=== PATIENT | male | born 1960 | race Caucasian/White ===

== ENCOUNTER 2020-11-23 20:37 | Emergency (ER) | payer BC, SELFPAY ==
[2020-11-23 20:42] VITALS: BP 147/100; PULSE 89; RESP 15; TEMP 36.6; O2SAT 98; BMI 31.9
--- NOTE | 2020-11-23 20:51 | XR_ITS ---
PROCEDURE INFORMATION: Exam: XR Right Hip Exam date and time: 11/23/2020 8:51 PM Age: 60 years old Clinical indication: Patient HX: Right hip pain for 1 week with unknown injury, pain increased today, PT says feels like having spasms TECHNIQUE: Imaging protocol: XR Right hip. Views: 2 or 3 views hip with pelvis when performed. COMPARISON: No relevant prior studies available. FINDINGS: Bones/joints: No fracture or dislocation identified. Femoral heads retain their normal contour. Soft tissues: Unremarkable. Vasculature: A few phleboliths are incidentally noted in the pelvis. IMPRESSION: No acute findings.
[2020-11-23 21:30] VITALS: BP 123/77; PULSE 75; O2SAT 96
--- NOTE | 2020-11-23 21:53 | HMH.EDBACK ---
ED Disposition Clinical Impression: Low back strain Qualifiers: Encounter type: initial encounter Qualified Code(s): S39.012A - Strain of muscle, fascia and tendon of lower back, initial encounter Disposition: Home, Self-Care Condition on Discharge: Good Instructions: DI for Low Back Pain Additional Instructions: Recommend Tylenol and ibuprofen or Aleve for pain intermittent icing rest and activity as tolerated. Prescriptions: Cyclobenzaprine HCl [Flexeril 10mg tablet] 10 mg PO TID PRN 4 Days #12 tab PRN Reason: Muscle Spasm Transmission Status: Pending to [id number] Referrals: Obdulio Wilder [Primary Care Provider] - Time of Disposition: 22:04 - Critical Care Critical Care Time: No Attestation: On 11/23/20, the high probability of a clinically significant, sudden or life threatening deterioration of the following system(s) required my full and direct attention, intervention and personal management. The time I documented below is in addition to time spent performing reported procedures but includes the following listed in this critical care notation. Medical Decision Making - Medical Records Medical records reviewed: Yes: I reviewed the patient's medical records. - Steve Inquiry Pt receiving controlled substance: No Vital Signs: 11/23/20 20:42 Temperature 98 F Temperature Source Oral Pulse Rate [Right Brachial] 89 Respiratory Rate 15 Blood Pressure [Right Arm] 147/100 H Blood Pressure Mean [Right Arm] 115 Blood Pressure Source [Right Arm] Automatic Cuff Blood Pressure Position [Right Arm] Sitting 02 Sat by Pulse Oximetry 98 Oxygen Delivery Method Room Air Orders (Tests/Meds): ED MEDICATIONS Discontinued Medications Generic Name Dose Route Start Last Admin Trade Name Freq PRN Reason Stop Dose Admin Diazepam 5 mg 11/23/20 20:51 11/23/20 21:02 Diazepam 5mg Tablet PO 11/23/20 20:52 5 mg ONCE ONE Administration Ketorolac Tromethamine 30 mg 11/23/20 20:51 11/23/20 21:01 Ketorolac 30mg/Ml Vial IM 11/23/20 20:52 30 mg ONCE ONE Administration ORDERS Category Date Time Status Hip XR right minimum 2 views [XR hip RT 2-3V w/pelvis] Exams 11/23/20 20:51 Taken Stat - Radiology Data #1 Image(s): Hip Image Reviewed: Yes I reviewed the patient's radiology image mild arthritis of the R hip joint with no misalignment and no evidence of fracture. Medical Decision Narrative: Days of lower back pain that appears muscular in nature with active spasming on exam and muscular tenderness. No red flag symptoms for compressive syndrome and vascular pulses are normal to the foot with no other concerning symptoms. He was given Toradol IM 30 mg and 5 mg p.o. Valium. On reevaluation the patient's symptoms had significantly improved he was given appropriate return precautions and conservative management discharged home in good condition Back Pain HPI - General Chief Complaint: Back Pain/Injury Stated Complaint: back pain Time Seen by Provider: 11/23/20 20:45 Mode of Arrival: Family Vehicle Source of Information: Patient Limitations: No Limitations Description of Symptoms (Recalled from ER Triage Doc. by RN): pt has had what he says is aggravating right hip pain for the last week, acutely exacerbated tonight when he attempted to get up out of his chair. the pain went right through me, made me see stars . vss. emv 15. pt denies previous injury to this area. - History of Present Illness HPI Narrative: Presents with sharp back pain that is intermittently severe started as he euegnia up out of a chair within the hour before arrival. Pain is right lower back and hip. He has been sore and hurting minimally for the past 2 days. He has been using heat and massage therapy over the past 2 days with no [id number] medications. Denies saddle anesthesia, leg weakness, and urinary incontinence/retention. Pt describes pain as 8/10 at this time and denies radiation
[2020-11-23 22:00] VITALS: BP 110/64; PULSE 77; O2SAT 97
[2020-11-23 22:16] VITALS: BP 123/84; PULSE 77; RESP 18; TEMP 36.6; O2SAT 95
== END 2020-11-23 22:19 | disposition home or self-care (01) ==
PROVIDERS: Emergency Provider Student in an Organized Health Care Education/Training Program; PCP Internal Medicine
DX: S39.012A Strain of muscle, fascia and tendon of lower back, initial encounter (principal)
CPT/HCPCS: 73502; 96372; 99282

== ENCOUNTER → 2020-12-04 10:27 | Outpatient (CLI) | payer BC, SELFPAY ==
[2020-12-04 10:58] LABS: Basophils % 0.5 % (0.1-2.0); Eosinophils # 0.2 K/mm3 (0.0-0.4); Eosinophils % 2.1 % (0.1-12.0); Hematocrit 46.1 % (42.0-52.0); Hemoglobin 15.4 g/dL (14.1-18.0); Lymphocytes # 2.6 K/mm3 (0.7-4.5); Lymphocytes % 32.5 % (10-50); Mean Corpuscular HGB Conc 33.4 g/dL (31.8-35.4); Mean Corpuscular Hemoglobin 29.1 pg (27.0-31.2); Mean Corpuscular Volume 87.1 fl (80-94); Mean Platelet Volume 8.1 fl (7.4-10.4); Monocytes # 0.5 K/mm3 (0.1-1.0); Monocytes % 5.5 % (1.7-9.3); Neutrophils # 4.8 K/mm3 (1.8-7.8); Neutrophils % 59.3 % (37.0-80.0); Platelet Count 208 K/mm3 (142-424); Red Blood Count 5.29 M/mm3 (4.60-6.20); Red Cell Distribution Width 14.1 % (11.5-17.5)
[2020-12-04 11:44] LABS: Alanine Aminotransferase 26 U/L (12-78); Albumin Level 4.3 g/dl (3.5-5.0); Albumin/Globulin Ratio 1.4 (1.1-1.8); Alkaline Phosphatase 88 U/L (38-126); Anion Gap 11.1 mEq/L (5-15); Aspartate Amino Transferase 36 U/L (17-59); Bilirubin,Total 0.8 mg/dl (0.2-1.3); Blood Urea Nitrogen 21 mg/dl (9-20); Calcium 9.3 mg/dl (8.4-10.2); Carbon Dioxide 25 mmol/L (22.0-30.0); Chloride 106 mmol/L (98-107); Chol/HDL Ratio 3.2 (1-3.5); Cholesterol 185 mg/dl (140-200); Estimated Glomerular Filt Rate 99 ml/min (>60); GFR (African American) 119 ML/MIN (>60); Globulin 3.1 g/dL (1.3-3.2); Glucose 115 mg/dl (74-100); HDL Cholesterol 57 mg/dl (40-60); Potassium 4.1 mmoL/L (3.5-5.1); Sodium 138 mmol/L (136-145); Total Protein,Serum 7.4 g/dl (6.3-8.2); Triglycerides 78 mg/dl (30-150); VLDL Cholesterol 16 mg/dL (0-40)
[2020-12-04 11:57] LABS: Direct LDL Cholesterol 97.33 mg/dL (100-129)
[2020-12-04 13:12] LABS: Hemoglobin A1C 7.4 % (4.0-6.0)
== END ==
PROVIDERS: Visit Provider Internal Medicine
DX: E11.42 Type 2 diabetes mellitus with diabetic polyneuropathy (principal); I10 Essential (primary) hypertension; E78.5 Hyperlipidemia, unspecified; M15.0 Primary generalized (osteo)arthritis
CPT/HCPCS: 36415; 80053; 80061; 83036; 85025

== ENCOUNTER → 2021-06-10 15:44 | Outpatient (CLI) | payer BC, SELFPAY ==
[2021-06-10 16:30] LABS: Basophils % 0.4 % (0.1-2.0); Eosinophils # 0.2 K/mm3 (0.0-0.4); Eosinophils % 2.9 % (0.1-12.0); Hematocrit 45.3 % (42.0-52.0); Hemoglobin 15.2 g/dL (14.1-18.0); Lymphocytes # 2.6 K/mm3 (0.7-4.5); Lymphocytes % 45.1 % (10-50); Mean Corpuscular HGB Conc 33.5 g/dL (31.8-35.4); Mean Corpuscular Hemoglobin 28.8 pg (27.0-31.2); Mean Corpuscular Volume 85.9 fl (80-94); Mean Platelet Volume 9.5 fl (7.4-10.4); Monocytes # 0.4 K/mm3 (0.1-1.0); Monocytes % 7.5 % (1.7-9.3); Neutrophils # 2.5 K/mm3 (1.8-7.8); Neutrophils % 44.1 % (37.0-80.0); Platelet Count 250 K/mm3 (142-424); Red Blood Count 5.27 M/mm3 (4.60-6.20); White Blood Count 5.7 K/mm3 (4.8-10.8)
[2021-06-10 17:13] LABS: Microalbumin < 6.000 mg/L (0-16.7)
[2021-06-10 17:18] LABS: Alanine Aminotransferase 34 U/L (12-78); Albumin Level 4.1 g/dl (3.5-5.0); Albumin/Globulin Ratio 1.4 (1.1-1.8); Alkaline Phosphatase 66 U/L (38-126); Amylase 57 U/L (30-110); Anion Gap 12.5 mEq/L (5-15); Aspartate Amino Transferase 44 U/L (17-59); Bilirubin,Total 0.7 mg/dl (0.2-1.3); Blood Urea Nitrogen 22 mg/dl (9-20); Calcium 9.4 mg/dl (8.4-10.2); Carbon Dioxide 24 mmol/L (22.0-30.0); Chloride 105 mmol/L (98-107); Cholesterol 176 mg/dl (140-200); Estimated Glomerular Filt Rate 99 ml/min (>60); GFR (African American) 119 ML/MIN (>60); Globulin 2.9 g/dL (1.3-3.2); Glucose 102 mg/dl (74-100); HDL Cholesterol 58 mg/dl (40-60); Potassium 4.5 mmoL/L (3.5-5.1); Sodium 137 mmol/L (136-145); Triglycerides 114 mg/dl (30-150); VLDL Cholesterol 23 mg/dL (0-40)
[2021-06-10 17:29] LABS: Direct LDL Cholesterol 92.06 mg/dL (100-129)
[2021-06-10 17:48] LABS: Prostate Specific Ag Screen 1.8 ng/ml (0.0-4.0)
[2021-06-10 18:32] LABS: Hemoglobin A1C 7.4 % (4.0-6.0)
== END ==
PROVIDERS: Visit Provider Internal Medicine
DX: R10.13 Epigastric pain (principal); E11.42 Type 2 diabetes mellitus with diabetic polyneuropathy; I10 Essential (primary) hypertension; E78.5 Hyperlipidemia, unspecified; M15.0 Primary generalized (osteo)arthritis; N40.1 Benign prostatic hyperplasia with lower urinary tract symptoms; Z12.5 Encounter for screening for malignant neoplasm of prostate
CPT/HCPCS: 80053; 80061; 82043; 82150; 83036; 85025; G0103

== ENCOUNTER → 2021-11-09 09:50 | Outpatient (CLI) | payer BC, SELFPAY | PROVIDERS: Visit Provider Surgery | DX: Z01.812 Encounter for preprocedural laboratory examination (principal); Z11.52 Encounter for screening for COVID-19; Z13.810 Encounter for screening for upper gastrointestinal disorder | CPT/HCPCS: C9803; U0003; U0005 ==

== ENCOUNTER 2021-11-12 11:19 | Day surgery (SDC) | payer BC, SELFPAY ==
[2021-11-07 14:49] VITALS: BMI 33.2
[2021-11-12 11:41] VITALS: BP 135/93; PULSE 52; RESP 18; TEMP 36.4; O2SAT 97
[2021-11-12 11:52] LABS: POC Glucose,Bedside 127 (70-110)
--- NOTE | 2021-11-12 12:41 | P.PN_ITS ---
[facility] Anesthesia Checklist - Patient Identification Patient Identification: Arm Band - Structural Data Admitted From: Home Planned Operative Procedure/s: EGD Consent for Planned Operative Procedure(s) Verified: Yes Verified Documents: Surgical Consent, History and Physical - NPO Status Verified Time NPO: 00:00 - Additional verifications Anesthesia Reactions: No - Airway Assessment C-Spine Mobility Assessed: Yes (mp2) TMJ Mobility Assessed: Yes Dentition: Edentulous - Neurological Assessment Level of Consciousness: Awake, Alert - Anesthesia Plan Anesthesia Risk discussed: Yes Anesthesia Plan: Verified ASA Class: II Anesthesia Type: MAC [facility] History I have reviewed the patient's past medical history: Yes Medical History: Reports:: Diabetes Mellitus Type 2, Hyperlipidemia, Hypertension Denies:: Cancer, MRSA, Seizures *Have you ever received a pneumonia vaccine?: Yes *Have you received a flu vaccine this season?: Yes Anesthesia experience/problems:: nac Other Surgeries: Yes: Cholecystectomy, Other Amputation: Yes - *Social History Last grade of school completed: High school graduate Smoking Status: Never smoker Alcohol Intake: never Substance Use Type: denies use *Occupational Status:: retired Housing: house *Travel in the last 8 weeks: None Family Hx:: No significant family history
--- NOTE | 2021-11-12 13:18 | HMH.SCOPE ---
- Procedure: Date: 11/12/21 Patient Date of :: 1960 Procedure Performed:: Esophagogastroscopy Indications:: Dyspepsia Epigastric pain Abdominal bloat Performing Provider:: Malachi Rivera MD Referring Provider:: . Sedation:: Monitored anesthesia care Procedure:: After informed consent was obtained the patient was taken to the endoscopy suite. Sedation ensued after the patient was transferred to the left lateral decubitus position. Pulse, blood pressure, and oxygen saturation were monitored throughout the procedure. The endoscope was advanced into the gastric lumen. Retroflexion within the gastric lumen was accomplished. The gastroscope was carefully removed and the patient was transferred to recovery in stable condition. Please see findings and specimens below for detail. Findings:: Complex hiatal hernia with likely sliding and paraesophageal component (versus large sliding defect)... Mid and distal portion of gastric body protruding through hiatal hernia Specimens:: None Recommendations:: UGI ordered The patient will be referred to Dr. Angel Christine at the [facility] to discuss laparoscopic repair of complex hiatal hernia. Complications:: No immediate Estimated blood obtained (mL): 0
[2021-11-12 13:26] VITALS: O2SAT 97
[2021-11-12 13:35] VITALS: BP 113/63; PULSE 59; RESP 16; TEMP 36.2; O2SAT 98
[2021-11-12 13:45] VITALS: BP 118/68; PULSE 57; RESP 16; O2SAT 93
[2021-11-12 13:55] VITALS: BP 115/73; PULSE 57; RESP 16; O2SAT 96
[2021-11-12 14:10] VITALS: BP 113/68; PULSE 58; RESP 16; TEMP 36.2; O2SAT 98
--- NOTE | 2021-11-12 14:20 | SUR.PHASEII ---
Pt aware that he is to be here @ 0845 for upper GI series. Pt aware of need to be NPO after midnight.
== END 2021-11-12 14:10 | disposition home or self-care (01) ==
PROVIDERS: PCP Internal Medicine; Referring Provider Internal Medicine; Visit Provider Surgery
PROC: 0DJ08ZZ Inspection of Upper Intestinal Tract, Via Natural or Artificial Opening Endoscopic (ICD-10-PCS; CPT 43235; principal; 2021-11-12 12:30)
DX: R14.0 Abdominal distension (gaseous) (principal); K44.0 Diaphragmatic hernia with obstruction, without gangrene; E11.9 Type 2 diabetes mellitus without complications; E78.5 Hyperlipidemia, unspecified; I10 Essential (primary) hypertension; Z79.84 Long term (current) use of oral hypoglycemic drugs; Z79.4 Long term (current) use of insulin; Z79.899 Other long term (current) drug therapy
CPT/HCPCS: 43235; 82962

== ENCOUNTER → 2021-11-13 08:40 | Outpatient (CLI) | payer BC, SELFPAY ==
--- NOTE | 2021-11-13 08:53 | FL_ITS ---
FINAL REPORT CLINICAL HISTORY: feels full quickly; epigastric pain; post-prandial pain FINDINGS: UPPER GI EXAM HISTORY: Abdominal pain, nausea. PROCEDURE: The patient ingested barium. Effervescent crystals were also administered. Spot and overhead films were obtained. FINDINGS: There is a small sliding-type hiatal hernia with a Schatzki's ring. However, there is a large paraesophageal hernia with the near entirety of the body of the stomach above the diaphragm. The channel of the distal stomach returning through the hiatus is narrowed and contrast is slow to pass this region. No gastroesophageal reflux is present. Gastric mucosa is otherwise normal. The proximal small bowel is not well evaluated due to slow flow of contrast and nondistention of small bowel. FLUOROSCOPY TIME: 1 minute 27 seconds IMPRESSION: 1. Large periesophageal hernia with the majority of the gastric body above the diaphragm. 2. Narrowing of the distal stomach as it returns to the hiatus with slow flow of contrast. 3. Small sliding type hiatal hernia with a Schatzki's ring. Films reviewed , interpreted and dictated by Dr. Biggs Transcribed by Hiram Douglas PA-C. Reviewed, Interpreted and Dictated by Smith Biggs III, MD Transcribed by COCO Cabello Authenticated by Smith Biggs III, MD on 11/13/2021 11:10:48 AM [facility]
== END ==
PROVIDERS: PCP Internal Medicine; Visit Provider Surgery
DX: R10.13 Epigastric pain (principal); K44.9 Diaphragmatic hernia without obstruction or gangrene
CPT/HCPCS: 74246

== ENCOUNTER → 2021-11-29 12:17 | Outpatient (CLI) | payer BC, SELFPAY ==
[2021-11-29 13:03] LABS: Basophils % 0.4 % (0.1-2.0); Eosinophils # 0.2 K/mm3 (0.0-0.4); Eosinophils % 2.4 % (0.1-12.0); Hematocrit 46.2 % (42.0-52.0); Hemoglobin 15.8 g/dL (14.1-18.0); Lymphocytes # 2.5 K/mm3 (0.7-4.5); Lymphocytes % 41.4 % (10-50); Mean Corpuscular HGB Conc 34.2 g/dL (31.8-35.4); Mean Corpuscular Hemoglobin 29.3 pg (27.0-31.2); Mean Corpuscular Volume 85.6 fl (80-94); Monocytes # 0.5 K/mm3 (0.1-1.0); Monocytes % 8.2 % (1.7-9.3); Neutrophils # 2.9 K/mm3 (1.8-7.8); Neutrophils % 47.7 % (37.0-80.0); Platelet Count 250 K/mm3 (142-424); Red Cell Distribution Width 13.9 % (11.5-17.5); White Blood Count 6.1 K/mm3 (4.8-10.8)
[2021-11-29 13:41] LABS: Chloride 106 mmol/L (98-107); Potassium 4.5 mmoL/L (3.5-5.1); Sodium 139 mmol/L (136-145)
[2021-11-29 13:43] LABS: Alanine Aminotransferase 28 U/L (12-78); Anion Gap 15.5 mEq/L (5-15); Aspartate Amino Transferase 33 U/L (17-59); Blood Urea Nitrogen 17 mg/dl (9-20); Carbon Dioxide 22 mmol/L (22.0-30.0); Estimated Glomerular Filt Rate 115 ml/min (>60); GFR (African American) 139 ML/MIN (>60)
[2021-11-29 13:44] LABS: Albumin Level 4.2 g/dl (3.5-5.0); Albumin/Globulin Ratio 1.5 (1.1-1.8); Alkaline Phosphatase 87 U/L (38-126); Bilirubin,Total 0.7 mg/dl (0.2-1.3); Calcium 9.4 mg/dl (8.4-10.2); Chol/HDL Ratio 3.9 (1-3.5); Cholesterol 198 mg/dl (140-200); Globulin 2.8 g/dL (1.3-3.2); Glucose 154 mg/dl (74-100); HDL Cholesterol 51 mg/dl (40-60); Triglycerides 107 mg/dl (30-150); VLDL Cholesterol 21 mg/dL (0-40)
[2021-11-29 14:00] LABS: Direct LDL Cholesterol 121.37 mg/dL (100-129)
== END ==
PROVIDERS: PCP Internal Medicine; Visit Provider Internal Medicine
DX: E11.42 Type 2 diabetes mellitus with diabetic polyneuropathy (principal); I10 Essential (primary) hypertension; E78.5 Hyperlipidemia, unspecified; Z79.4 Long term (current) use of insulin
CPT/HCPCS: 80053; 80061; 83036; 85025

== ENCOUNTER → 2022-03-24 08:07 | Outpatient (CLI) | payer BC, SELFPAY ==
--- NOTE | 2022-03-24 08:08 | FL_ITS ---
FINAL REPORT CLINICAL HISTORY: . dysphgia ...57 fluoro time s/p hiatal hernia repair FINDINGS: ESOPHAGRAM HISTORY: Abdominal pain, nausea. PROCEDURE: The patient ingested barium. Effervescent crystals were also administered. Spot and overhead films were obtained. FINDINGS: The esophagus demonstrates esophageal dysmotility. There is marked smooth narrowing of the distal esophagus with the appearance of achalasia. The patient is report of previous hernia repair surgery. A 13 mm barium tablet would not pass through the narrowing. IMPRESSION: . Distal esophageal narrowing with an appearance more suggestive of achalasia. Endoscopiic correlation is recommended. Fluoroscopy time: 57 seconds Films reviewed , interpreted and dictated by Dr. Merida. Transcribed by Hiram Douglas PA-C. Reviewed, Interpreted and Dictated by Mamadou Merida MD Transcribed by COCO Cabello Authenticated and [facility]
== END ==
PROVIDERS: PCP Internal Medicine; Visit Provider Surgery
DX: K44.9 Diaphragmatic hernia without obstruction or gangrene (principal)
CPT/HCPCS: 74220

== ENCOUNTER → 2022-03-29 10:59 | Outpatient (CLI) | payer BC, SELFPAY | PROVIDERS: PCP Internal Medicine; Visit Provider Surgery | DX: Z01.812 Encounter for preprocedural laboratory examination (principal); Z20.822 Contact with and (suspected) exposure to COVID-19; Z13.810 Encounter for screening for upper gastrointestinal disorder | CPT/HCPCS: C9803; U0003; U0005 ==

== ENCOUNTER 2022-04-01 09:44 | Day surgery (SDC) | payer BC, SELFPAY ==
[2022-03-27 14:57] VITALS: BMI 29.2
[2022-04-01 10:01] VITALS: BP 139/77; PULSE 52; RESP 18; TEMP 36.3; O2SAT 98
[2022-04-01 10:18] LABS: POC Glucose,Bedside 125 (70-110)
--- NOTE | 2022-04-01 10:21 | P.PN_ITS ---
[facility] Medical History Diabetic acidosis, type I Surgical History Status post laparoscopic fundoplication Status post repair of paraesophageal diaphragmatic hernia Family History Other No significant family history Social History Smoking Status: Never smoker alcohol intake: never substance use type: denies use current occupational status: retired Travel in the last 8 weeks: None housing: house current occupational exposures/hazards: No [facility] Anesthesia Checklist Patient Identification Patient Identification: Arm Band Structural Data Admitted From: Home Planned Operative Procedure/s: EGD with Esophageal Dilation Consent for Planned Operative Procedure(s) Verified: Yes Verified Documents: Surgical Consent and History and Physical NPO Status Verified Time NPO: 00:00 Additional verifications Anesthesia Reactions: No Airway Assessment C-Spine Mobility Assessed: Yes TMJ Mobility Assessed: Yes Dentition: Edentulous Neurological Assessment Level of Consciousness: Awake and Alert Anesthesia Plan Anesthesia Risk discussed: Yes Anesthesia Plan: Verified ASA Class: II Anesthesia Type: MAC
[2022-04-01 10:29] VITALS: O2SAT 98
[2022-04-01 10:45] VITALS: BP 110/65; PULSE 63; RESP 12; TEMP 36.4; O2SAT 95
--- NOTE | 2022-04-01 10:46 | HMH.SCOPE ---
Procedure: Date: 04/01/22 Patient Date of :: 1960 Procedure Performed:: Esophagogastroscopy with dilatation to 18 mm Indications:: Esophageal stricture status post paraesophageal hernia repair with Riri fundoplication Performing Provider:: Malachi Rivera MD Referring Provider:: . Sedation:: Monitored anesthesia care Procedure:: After informed consent was obtained the patient was taken to the endoscopy suite. Sedation ensued after the patient was transferred to the left lateral decubitus position. Pulse, blood pressure, and oxygen saturation were monitored throughout the procedure. The endoscope was advanced into the stomach without difficulty. Large volume food particles noted throughout gastric lumen. Visualization limited. Retroflexion revealed a normal-appearing Riri. Serial balloon dilatation of the gastroesophageal junction to 18 mm was completed. No definitive significant stricture confirmed. The gastroscope was carefully removed and the patient was transferred to recovery in stable condition. Please see findings and specimens below for detail. Findings:: Normal-appearing Riri No significant stricture noted Gastroesophageal junction dilatation to 18 mm completed Specimens:: None Recommendations:: May require repeat dilatation of gastroesophageal junction. Although some anatomic stricture is possible physiologic stricture/spasm is likely a significant contributing factor May also have a degree of gastroparesis and may benefit from UGI/SBFT and gastric emptying scan Complications:: No immediate Estimated blood obtained (mL): 0
[2022-04-01 10:55] VITALS: BP 110/89; PULSE 65; RESP 16; O2SAT 97
[2022-04-01 11:05] VITALS: BP 117/86; PULSE 52; RESP 16; O2SAT 96
[2022-04-01 11:15] VITALS: BP 113/70; PULSE 55; RESP 16; TEMP 36.4; O2SAT 95
== END 2022-04-01 11:15 | disposition home or self-care (01) ==
PROVIDERS: PCP Internal Medicine; Visit Provider Surgery
PROC: 0DJ08ZZ Inspection of Upper Intestinal Tract, Via Natural or Artificial Opening Endoscopic (ICD-10-PCS; CPT 43235; principal; 2022-04-01 11:00)
DX: K22.2 Esophageal obstruction (principal); Z79.899 Other long term (current) drug therapy
CPT/HCPCS: 43249; 82962; C1726

== ENCOUNTER → 2022-06-03 09:44 | Outpatient (CLI) | payer BC, SELFPAY ==
[2022-06-03 10:34] LABS: Basophils % 0.3 % (0.1-2.0); Eosinophils # 0.1 K/mm3 (0.0-0.4); Hematocrit 48.6 % (42.0-52.0); Hemoglobin 15.5 g/dL (14.1-18.0); Lymphocytes # 1.9 K/mm3 (0.7-4.5); Lymphocytes % 28.1 % (10-50); Mean Corpuscular HGB Conc 31.9 g/dL (31.8-35.4); Mean Corpuscular Hemoglobin 30.4 pg (27.0-31.2); Mean Platelet Volume 8.8 fl (7.4-10.4); Monocytes # 0.4 K/mm3 (0.1-1.0); Monocytes % 5.8 % (1.7-9.3); Neutrophils # 4.2 K/mm3 (1.8-7.8); Neutrophils % 63.8 % (37.0-80.0); Platelet Count 216 K/mm3 (142-424); Red Blood Count 5.11 M/mm3 (4.60-6.20); Red Cell Distribution Width 13.4 % (11.5-17.5); White Blood Count 6.6 K/mm3 (4.8-10.8)
[2022-06-03 11:00] LABS: Alanine Aminotransferase 26 U/L (12-78); Albumin Level 4.2 g/dl (3.5-5.0); Albumin/Globulin Ratio 1.4 (1.1-1.8); Alkaline Phosphatase 100 U/L (38-126); Amylase 50 U/L (30-110); Anion Gap 16.2 mEq/L (5-15); Aspartate Amino Transferase 29 U/L (17-59); Bilirubin,Total 0.6 mg/dl (0.2-1.3); Blood Urea Nitrogen 22 mg/dl (9-20); Carbon Dioxide 30 mmol/L (22.0-30.0); Chloride 99 mmol/L (98-107); Chol/HDL Ratio 2.8 (1-3.5); Cholesterol 162 mg/dl (140-200); Estimated Glomerular Filt Rate 98 ml/min (>60); GFR (African American) 119 ML/MIN (>60); Globulin 2.9 g/dL (1.3-3.2); Glucose 123 mg/dl (74-100); HDL Cholesterol 57 mg/dl (40-60); Potassium 4.2 mmoL/L (3.5-5.1); Sodium 141 mmol/L (136-145); Total Protein,Serum 7.1 g/dl (6.3-8.2); Triglycerides 88 mg/dl (30-150); VLDL Cholesterol 18 mg/dL (0-40)
[2022-06-03 11:12] LABS: Direct LDL Cholesterol 84.75 mg/dL (100-129)
[2022-06-03 11:58] LABS: Creatinine,Urine Random 83 mg/dL (Not Estab.)
[2022-06-03 12:00] LABS: Microalbumin/Creatinine Ratio 9.7
[2022-06-03 12:01] LABS: Hemoglobin A1C 7.2 % (4.0-6.0)
== END ==
PROVIDERS: PCP Internal Medicine; Visit Provider Internal Medicine
DX: E11.42 Type 2 diabetes mellitus with diabetic polyneuropathy (principal); I10 Essential (primary) hypertension; E78.5 Hyperlipidemia, unspecified; R13.19 Other dysphagia; M15.0 Primary generalized (osteo)arthritis; Z79.4 Long term (current) use of insulin
CPT/HCPCS: 36415; 80053; 80061; 82043; 82150; 82570; 83036; 85025

== ENCOUNTER → 2022-06-09 07:39 | Outpatient (CLI) | payer BC, SELFPAY ==
--- NOTE | 2022-06-09 08:30 | US_ITS ---
FINAL REPORT CLINICAL HISTORY: ABD PAIN FINDINGS: Sonographic images of the abdomen were obtained. The liver has an unremarkable appearance with normal echogenicity. The gallbladder is surgically absent. There is no evidence of biliary ductal dilatation. Pancreas is partially obscured. The spleen size is normal. The right kidney measures 12 in length. The left kidney measures 12 in length. There is normal renal echogenicity. There is no evidence of hydronephrosis. Aorta is within normal limits. Color flow identified in the portal and hepatic veins. IMPRESSION: Post cholecystectomy, otherwise unremarkable exam. Reviewed, Interpreted and Dictated by Smith Biggs III, MD Transcribed by Vania Devries Authenticated and [facility]
== END ==
PROVIDERS: PCP Internal Medicine; Visit Provider Internal Medicine
DX: R10.11 Right upper quadrant pain (principal)
CPT/HCPCS: 76700

== ENCOUNTER → 2022-12-02 12:57 | Outpatient (CLI) | payer BC, SELFPAY ==
[2022-12-02 14:47] LABS: Alanine Aminotransferase 26 U/L (12-78); Albumin/Globulin Ratio 1.4 (1.1-1.8); Alkaline Phosphatase 85 U/L (38-126); Anion Gap 16.2 mEq/L (5-15); Aspartate Amino Transferase 29 U/L (17-59); Bilirubin,Total 0.6 mg/dl (0.2-1.3); Blood Urea Nitrogen 18 mg/dl (9-20); Calcium 8.8 mg/dl (8.4-10.2); Carbon Dioxide 25 mmol/L (22.0-30.0); Chloride 103 mmol/L (98-107); Chol/HDL Ratio 3.1 (1-3.5); Cholesterol 187 mg/dl (140-200); Estimated Glomerular Filt Rate 114 ml/min (>60); GFR (African American) 138 ML/MIN (>60); Globulin 2.9 g/dL (1.3-3.2); Glucose 142 mg/dl (74-100); HDL Cholesterol 60 mg/dl (40-60); Potassium 4.2 mmoL/L (3.5-5.1); Sodium 140 mmol/L (136-145); Total Protein,Serum 6.9 g/dl (6.3-8.2); Triglycerides 130 mg/dl (30-150); VLDL Cholesterol 26 mg/dL (0-40)
[2022-12-02 14:57] LABS: Direct LDL Cholesterol 96.27 mg/dL (100-129)
[2022-12-02 15:57] LABS: Hemoglobin A1C 8.6 % (4.0-6.0)
== END ==
LOC: LAB.DROPOF 12:57
PROVIDERS: PCP Internal Medicine; Visit Provider Internal Medicine
DX: E11.42 Type 2 diabetes mellitus with diabetic polyneuropathy (principal); E78.5 Hyperlipidemia, unspecified; I10 Essential (primary) hypertension; Z79.4 Long term (current) use of insulin
CPT/HCPCS: 80053; 80061; 83036

== ENCOUNTER → 2023-04-15 13:26 | Outpatient (CLI) | payer BC, SELFPAY ==
[2023-04-15 15:11] LABS: Prostate Specific Ag Screen 2.9 ng/ml (0.0-4.0)
== END ==
PROVIDERS: PCP Internal Medicine; Visit Provider Internal Medicine
DX: Z12.5 Encounter for screening for malignant neoplasm of prostate (principal); R31.0 Gross hematuria
CPT/HCPCS: G0103

== ENCOUNTER → 2023-06-09 16:21 | Outpatient (CLI) | payer BC, SELFPAY ==
[2023-06-09 16:47] LABS: Basophils % 0.2 % (0.1-2.0); Eosinophils # 0.2 K/mm3 (0.0-0.4); Eosinophils % 2.2 % (0.1-12.0); Hematocrit 50.8 % (42.0-52.0); Hemoglobin 17.4 g/dL (14.1-18.0); Lymphocytes # 2.5 K/mm3 (0.7-4.5); Lymphocytes % 37.1 % (10-50); Mean Corpuscular HGB Conc 34.2 g/dL (31.8-35.4); Mean Corpuscular Hemoglobin 31.3 pg (27.0-31.2); Mean Corpuscular Volume 91.5 fl (80-94); Mean Platelet Volume 9.4 fl (7.4-10.4); Monocytes # 0.6 K/mm3 (0.1-1.0); Monocytes % 8.3 % (1.7-9.3); Neutrophils # 3.5 K/mm3 (1.8-7.8); Neutrophils % 52.2 % (37.0-80.0); Platelet Count 186 K/mm3 (142-424); Red Blood Count 5.55 M/mm3 (4.60-6.20); Red Cell Distribution Width 13.6 % (11.5-17.5); White Blood Count 6.8 K/mm3 (4.8-10.8)
[2023-06-09 18:11] LABS: Alanine Aminotransferase 25 U/L (12-78); Albumin Level 4.4 g/dl (3.5-5.0); Albumin/Globulin Ratio 1.4 (1.1-1.8); Alkaline Phosphatase 81 U/L (38-126); Anion Gap 14.1 mEq/L (5-15); Aspartate Amino Transferase 34 U/L (17-59); Bilirubin,Total 0.9 mg/dl (0.2-1.3); Blood Urea Nitrogen 22 mg/dl (9-20); Calcium 8.7 mg/dl (8.4-10.2); Carbon Dioxide 22 mmol/L (22.0-30.0); Chloride 106 mmol/L (98-107); Chol/HDL Ratio 3.9 (1-3.5); Cholesterol 202 mg/dl (140-200); Estimated Glomerular Filt Rate 98 ml/min (>60); GFR (African American) 119 ML/MIN (>60); Globulin 3.2 g/dL (1.3-3.2); Glucose 114 mg/dl (74-100); HDL Cholesterol 52 mg/dl (40-60); Potassium 4.1 mmoL/L (3.5-5.1); Sodium 138 mmol/L (136-145); Total Protein,Serum 7.6 g/dl (6.3-8.2); Triglycerides 138 mg/dl (30-150); VLDL Cholesterol 28 mg/dL (0-40)
[2023-06-09 18:22] LABS: Direct LDL Cholesterol 108.43 mg/dL (100-129)
[2023-06-09 18:24] LABS: Hemoglobin A1C 7.8 % (4.0-6.0)
[2023-06-09 18:28] LABS: Creatinine,Urine Random 67 mg/dL (Not Estab.)
[2023-06-09 18:30] LABS: Microalbumin < 6.000 mg/L (0-16.7)
== END ==
PROVIDERS: PCP Internal Medicine; Visit Provider Internal Medicine
DX: E11.42 Type 2 diabetes mellitus with diabetic polyneuropathy (principal); E11.59 Type 2 diabetes mellitus with other circulatory complications; E78.5 Hyperlipidemia, unspecified; I10 Essential (primary) hypertension; M15.0 Primary generalized (osteo)arthritis; Z79.4 Long term (current) use of insulin
CPT/HCPCS: 80053; 80061; 82043; 82570; 83036; 85025

== ENCOUNTER 2023-12-08 11:18 | Outpatient (CLI) | payer BC, SELFPAY ==
[2023-12-08 11:53] LABS: Chloride 107 mmol/L (98-107); Potassium 4.4 mmoL/L (3.5-5.1); Sodium 139 mmol/L (136-145)
[2023-12-08 11:56] LABS: Alanine Aminotransferase 35 U/L (12-78); Albumin/Globulin Ratio 1.3 (1.1-1.8); Alkaline Phosphatase 73 U/L (38-126); Anion Gap 14.4 mEq/L (5-15); Aspartate Amino Transferase 35 U/L (17-59); Bilirubin,Total 0.8 mg/dl (0.2-1.3); Blood Urea Nitrogen 22 mg/dl (9-20); Carbon Dioxide 22 mmol/L (22.0-30.0); Cholesterol 185 mg/dl (140-200); Estimated Glomerular Filt Rate 114 ml/min (>60); GFR (African American) 138 ML/MIN (>60); Globulin 3.1 g/dL (1.3-3.2); Total Protein,Serum 7.1 g/dl (6.3-8.2); Triglycerides 146 mg/dl (30-150); VLDL Cholesterol 29 mg/dL (0-40)
[2023-12-08 11:57] LABS: Calcium 9.4 mg/dl (8.4-10.2); Chol/HDL Ratio 3.2 (1-3.5); Glucose 156 mg/dl (74-100); HDL Cholesterol 58 mg/dl (40-60)
[2023-12-08 12:07] LABS: Direct LDL Cholesterol 95.65 mg/dL (100-129)
== END 2023-12-08 23:59 | disposition home or self-care (01) ==
LOC: LAB.DROPOF 11:18
PROVIDERS: PCP Internal Medicine; Visit Provider Internal Medicine
DX: E11.49 Type 2 diabetes mellitus with other diabetic neurological complication (principal); Z79.84 Long term (current) use of oral hypoglycemic drugs; Z79.4 Long term (current) use of insulin; E78.5 Hyperlipidemia, unspecified; R79.9 Abnormal finding of blood chemistry, unspecified
CPT/HCPCS: 80053; 80061

== ENCOUNTER 2024-06-08 09:30 | Outpatient (CLI) | payer BC, SELFPAY ==
[2024-06-08 12:49] LABS: Basophils # 0.1 K/mm3 (0-0.2); Basophils % 0.6 % (0.1-2.0); Eosinophils # 0.1 K/mm3 (0.0-0.4); Eosinophils % 0.7 % (0.1-12.0); Hematocrit 51.8 % (42.0-52.0); Hemoglobin 17.6 g/dL (14.1-18.0); Lymphocytes % 27.1 % (10-50); Mean Corpuscular HGB Conc 33.9 g/dL (31.8-35.4); Mean Corpuscular Hemoglobin 31.6 pg (27.0-31.2); Mean Corpuscular Volume 93.2 fl (80-94); Mean Platelet Volume 8.2 fl (7.4-10.4); Monocytes # 0.5 K/mm3 (0.1-1.0); Monocytes % 7.2 % (1.7-9.3); Neutrophils # 4.8 K/mm3 (1.8-7.8); Neutrophils % 64.3 % (37.0-80.0); Platelet Count 191 K/mm3 (142-424); Red Blood Count 5.56 M/mm3 (4.60-6.20); Red Cell Distribution Width 13.6 % (11.5-17.5); White Blood Count 7.4 K/mm3 (4.8-10.8)
[2024-06-08 13:10] LABS: Alanine Aminotransferase 24 U/L (12-78); Albumin Level 4.2 g/dl (3.5-5.0); Albumin/Globulin Ratio 1.5 (1.1-1.8); Alkaline Phosphatase 80 U/L (38-126); Anion Gap 11.4 mEq/L (5-15); Aspartate Amino Transferase 33 U/L (17-59); Bilirubin,Total 0.9 mg/dl (0.2-1.3); Blood Urea Nitrogen 20 mg/dl (9-20); Calcium 9.4 mg/dl (8.4-10.2); Carbon Dioxide 28 mmol/L (22.0-30.0); Chloride 106 mmol/L (98-107); Chol/HDL Ratio 2.9 (1-3.5); Cholesterol 171 mg/dl (140-200); Estimated Glomerular Filt Rate 98 ml/min (>60); GFR (African American) 118 ML/MIN (>60); Globulin 2.8 g/dL (1.3-3.2); Glucose 94 mg/dl (74-100); HDL Cholesterol 59 mg/dl (40-60); Potassium 4.4 mmoL/L (3.5-5.1); Sodium 141 mmol/L (136-145); Triglycerides 86 mg/dl (30-150); VLDL Cholesterol 17 mg/dL (0-40)
[2024-06-08 13:20] LABS: Direct LDL Cholesterol 93.89 mg/dL (100-129)
[2024-06-08 13:40] LABS: Hemoglobin A1C 6.9 % (4.0-6.0)
[2024-06-08 14:35] LABS: Microalbumin/Creatinine Ratio 11.7
[2024-06-08 14:36] LABS: Creatinine,Urine Random 100 mg/dL (Not Estab.)
== END 2024-06-08 23:59 | disposition home or self-care (01) ==
LOC: LAB.DROPOF 06-09 09:26
PROVIDERS: PCP Internal Medicine; Visit Provider Internal Medicine
DX: E11.49 Type 2 diabetes mellitus with other diabetic neurological complication (principal); E78.5 Hyperlipidemia, unspecified; I10 Essential (primary) hypertension; Z12.5 Encounter for screening for malignant neoplasm of prostate
CPT/HCPCS: 80053; 80061; 82043; 82570; 83036; 85025; G0103

== ENCOUNTER 2024-12-07 14:40 | Outpatient (CLI) | payer BC, SELFPAY ==
[2024-12-07 14:05] LABS: Chloride 108 mmol/L (98-107); Potassium 4.5 mmoL/L (3.5-5.1); Sodium 140 mmol/L (136-145)
[2024-12-07 14:08] LABS: Alanine Aminotransferase 32 U/L (12-78); Albumin/Globulin Ratio 1.4 (1.1-1.8); Alkaline Phosphatase 92 U/L (38-126); Anion Gap 14.5 mEq/L (5-15); Aspartate Amino Transferase 41 U/L (17-59); Bilirubin,Total 1.1 mg/dl (0.2-1.3); Blood Urea Nitrogen 21 mg/dl (9-20); Carbon Dioxide 22 mmol/L (22.0-30.0); Cholesterol 182 mg/dl (140-200); Estimated Glomerular Filt Rate 114 ml/min (>60); GFR (African American) 137 ML/MIN (>60); Globulin 2.8 g/dL (1.3-3.2); Total Protein,Serum 6.8 g/dl (6.3-8.2); Triglycerides 97 mg/dl (30-150); VLDL Cholesterol 19 mg/dL (0-40)
[2024-12-07 14:09] LABS: Calcium 8.9 mg/dl (8.4-10.2); Glucose 162 mg/dl (74-100)
[2024-12-07 14:23] LABS: Hemoglobin A1C 8.3 % (4.0-6.0)
[2024-12-07 14:26] LABS: Direct LDL Cholesterol 90.98 mg/dL (100-129)
[2024-12-07 15:26] LABS: Chol/HDL Ratio 3.4 (1-3.5); HDL Cholesterol 53 mg/dl (40-60)
== END 2024-12-07 23:59 | disposition home or self-care (01) ==
LOC: LAB.DROPOF 14:40
PROVIDERS: PCP Internal Medicine; Visit Provider Internal Medicine
DX: E78.5 Hyperlipidemia, unspecified (principal); E11.49 Type 2 diabetes mellitus with other diabetic neurological complication; I10 Essential (primary) hypertension
CPT/HCPCS: 80053; 80061; 83036

== ENCOUNTER 2024-12-09 07:53 | Outpatient (CLI) | payer BC, SELFPAY ==
--- NOTE | 2024-12-09 07:56 | XR_ITS ---
FINAL REPORT CLINICAL HISTORY: Left low back pain, no known trauma FINDINGS: AP and lateral views of the lumbar spine were obtained. There is no prior exam for comparison. There is no acute fracture or malalignment. Vertebral body height is preserved. There is mild dextroscoliosis. Multilevel degenerative disc disease is noted, most pronounced at L4-5. No acute paraspinal abnormality. IMPRESSION: Multilevel degenerative disc disease. Reviewed, Interpreted and Dictated by Alannah Wells MD Transcribed by Maddy Weinberg Authenticated and [facility]
== END 2024-12-09 23:59 | disposition home or self-care (01) ==
LOC: RAD 07:54
PROVIDERS: PCP Internal Medicine; Visit Provider Internal Medicine
DX: M47.816 Spondylosis without myelopathy or radiculopathy, lumbar region (principal)
CPT/HCPCS: 72100

== ENCOUNTER 2024-12-16 07:06 | Outpatient (CLI) | payer BC, SELFPAY ==
--- OUTSIDE RECORDS SUMMARY | 2024-12-16 07:09 | XMS_ITS | Clinical Summary ---
Author Organization [facility] Address [address] [place] [address] Care Team Providers Care Pacs Specialist Name Role Phone Obdulio Wilder MD Primary Care Provider [phone] Allergies No known active allergies Medications metFORMIN (Glucophage) 1000 MG tablet Take 1,000 mg by mouth 2 (two) times a day with meals. 09/09/2021 Active losartan (Cozaar) 100 MG tablet Take 100 mg by mouth 1 (one) time each day in the morning. 09/08/2021 Active Farxiga 10 MG tablet Take 10 mg by mouth 1 (one) time each day in the morning. 09/09/2021 Active Januvia 100 MG tablet Take 100 mg by mouth 1 (one) time each day in the morning. 09/08/2021 Active lovastatin (Mevacor) 20 MG tablet Take 20 mg by mouth every night. 09/08/2021 Active Basaglar KwikPen 100 UNIT/ML injection Inject 24 Units under the skin every night. 10/24/2021 Active omeprazole (PriLOSEC) [address] capsule Take 20 mg by mouth 1 (one) time each day. Do not crush or chew. Active cyanocobalamin (Vitamin B-12) 100 MCG tablet Take 100 mcg by mouth 1 (one) time each day. Active aspirin 81 MG chewable tablet Chew 81 mg 1 (one) time each day. Active Active Problems Problem Noted Date Diagnosed Date Post-operative nausea and vomiting 01/13/2022 Food bolus obstruction of intestine 01/13/2022 Paraesophageal hiatal hernia 12/05/2021 Paraesophageal hernia 11/27/2021 Overview (11/27/2021): Added automatically from request for surgery [id number] Immunizations Immunization Administration Dates Next Due Influenza, Unspecified 04/13/2010 Family History Medical History Relation Name Comments Heart disease Mother Anesthesia problems Neg Hx Malig Hyperthermia Neg Hx Relation Name Status Comments Mother Social History Tobacco Use Types Packs/Day Years Used Date Smoking Tobacco: Never Smokeless Tobacco: Never Alcohol Use Standard Drinks/Week Comments Never 0 (1 standard drink = 0.6 oz pur e alcohol) PHQ-2 Answer Date Recorded Patient Health Questionnaire-2 Score 0 01/01/2022 CAGE ASSESSMENT Answer Date Recorded Cage unable to access Not on file 01/13/2022 Cage max number of drinks Not on file 2021 Cage Beverages a week Not on file 01/13/2022 Have you ever felt you should CUT down on your d rinking? 0 01/13/2022 Have you been ANNOYED by people criticizing your drinking? 0 01/13/2022 Have you felt GUILTY about your drinking? 0 01/13/2022 Have you had a drink first t mayda in the morning ([employer]) to steady your nerves or to get rid of a hangover? 0 01/13/2022 CAGE Questionnaire Score 0 022 Sex and Gender Information Value Date Recorded Sex Assigned at Not on file Legal Sex Male 8:03 PM EDT Gender Identity Not on file Sexual Orientation Not on file Last Filed Vital Signs Vital Sign Reading Time Taken Comments Blood Pressure 121/77 01/14/2022 3:10 PM EDT Pulse 55 01/14/2022 3:10 PM EDT Temperature 36.4 C (97.5 F) 01/14/2022 3:10 PM EDT Respiratory Rate 15 01/14/2022 3:00 PM EDT Oxygen Saturation 98% 01/14/2022 3:10 PM EDT Inhaled Oxygen Concentration - - Weight 95.4 kg (210 lb 6.4 oz) 01/13/2022 2:25 P M EDT Height 180.3 cm (5' 11 ) 01/13/2022 2:25 PM EDT Body Mass Index 29.34 01/13/2022 2:25 PM EDT Plan of Treatment Health Maintenance Due Date Last Done Comments [facility]-Infant/Child/Adol SDOH Screenings 1960 [facility]-Obesity Intervention 1966 [facility]- SDOH Screenings 1978 [facility]-Adult SDOH Screenings 1978 CT Colonography 2005 Colonoscopy 2005 FIT-DNA 2005 FIT 2005 FOBT 2005 Sigmoidoscopy 2005 [facility]-Colorectal Cancer Screening 2005 [facility]-Pneumococcal Vaccine: 50 + Years (1 of 1 - PCV) 2010 [facility]-DTaP,Tdap,and Td Vaccine s (2 - Td or Tdap) 01/26/2017 01/26/2007 [facility]-Depression Screening 01/01/2023 01/01/2022 [id number] Vaccine (1 - 2023- season) 2024 [facility]-Influenza Vaccine (Seaso n Ended) 2025 06/06/2020, 04/13/2010 [facility]-RSV Vaccine: 60+ Years o r (1 - 1-dose 75+ series) 2035 [facility]-Zoster Vaccines Completed 09/01/2020, 06/06/2020 [facility]-HIV Screening Completed 01/13/2022 [facility]-Hepatitis C Screening Completed 01/13/2022 HPV Vaccines Aged Out No longer eligi ble based on patient's age to complete this topic [facility]-HIB Vaccines Aged Out No longer e ligible based on patient's age to complete this topic [facility]-Hepatitis A Vaccines Aged Out No longer eligible based on patient's age to complete this topic [facility]-IPV Vaccines Aged Out No longer e ligible based on patient's age to complete this topic [facility]-Rotavirus Vaccines Aged Out No lo nger eligible based on patient's age to complete this topic Medical Devices Implanted Type Area Youth Care Worker Device Identifier Shelf Expiration Date Model / Serial / Lot Mesh Phasix St [id number] - [id number] Implanted:Qty : 1 on 12/05/2021 by Tomy Christine MD at [facility] N/A: Abdomen [id number] 03/02/2023 [id number] / / [id number] Description:SUB cat# [id number] Peg Ponsky 20fr Pull - [id number] Implanted:Qty : 1 on 12/05/2021 by Tomy Christine MD at [facility] N/A: Abdomen [id number] / / NOT PROVIDED Procedures Procedure Name Priority Date/Time Associated Diagnosis Comments HEPATITIS C ANTIBODY - ED W/REFLEX TO HCV QUANT PCR STAT 01/13/2022 8:58 AM EDT HIV 1/2 ANTIBODY/ANTIGEN SCREEN WITH REFLEX TO HIV I/II DIFFERENTIATION STAT 01/13/2022 8:58 AM EDT from Last 3 Months or Most Recently Relevant to Health Maintenance Results * HIV 1 & 2 Antibody/Antigen Screen (01/13/2022 8:58 AM EDT) HIV 1 & 2 Antibody/Anti gen Screen Nonreactive Nonreactive 01/13/2022 11:53 AM EDT [facility] Blood Venous blood specimen / Unknown Venipuncture / Unknown 01/13/2022 8:58 AM EDT 01/13/2022 9:06 AM EDT Nathan Rivera MD LAB BLOOD ORDERABLES Final Resul t Performing Organization Address City/[facility] Co de Phone Number [facility]ALTHCARE [facility] [address] [place] [address] * Hepatitis C Antibody - ED (01/13/2022 8:58 AM EDT) Hepatitis C Antibody Negative Negative 01/13/2022 11:54 AM EDT [facility] Blood Venous blood specimen / Unknown Venipuncture / Unknown 01/13/2022 8:58 AM EDT 01/13/2022 9:06 AM EDT us Nathan Rivera MD LAB BLOOD ORDERABLES Final Resul t Performing Organization Address City/[facility] Co de Phone Number [facility]ALTH[facility]ARE [facility] [address] [place] [address] from Last 3 Months or Most Recently Relevant to Health Maintenance Insurance [employer] Advance Directives * Full Code (Latest Code Status on File) Date Activated Date Inactivated Comments 01/13/2022 1:26 PM 01/14/2022 6:06 PM Question Answer Comments Patient has decision-making capacity? Yes * Full Code Date Activated Date Inactivated Comments 12/05/2021 11:14 AM 12/06/2021 2:57 PM Question Answer Comments Patient has decision-making capacity? Yes Care Teams Pacs Specialist Relationship Specialty Start Date End Date Obdulio Wilder MD [address] [place] [address] PCP - General 11/16/20
--- NOTE | 2024-12-16 07:30 | CT_ITS ---
FINAL REPORT TECHNIQUE: Axial images through the abdomen and pelvis were performed without contrast. This study was performed with techniques to keep radiation doses as low as reasonably achievable, (ALARA). Individualized dose reduction techniques using automated exposure control or adjustment of mA and/or kV according to the patient's size were employed. CLINICAL HISTORY: Gross hematuria COMPARISON: None FINDINGS: Abdomen: Scarring is present in the lung bases. Moderate fatty infiltration of the liver is present. The gallbladder is surgically absent. Fatty infiltration of the pancreas is present. Calcified granulomas are incidentally noted in the spleen. The spleen and adrenal glands are unremarkable. There are small nonobstructing right renal stones in both the upper and lower poles measuring up to 3 mm in size. Pelvis: The urinary bladder is incompletely distended. The appendix is not visualized. There is no pelvic mass or inflammation. Mild lumbar scoliosis is identified, convex to the patient's right. IMPRESSION: Small nonobstructing right renal stones without evidence hydronephrosis. Moderate fatty infiltration of the liver. Reviewed, Interpreted and Dictated by Mamadou Merida MD Transcribed by Kristi Hills Authenticated and [facility]
== END 2024-12-16 23:59 | disposition home or self-care (01) ==
PROVIDERS: PCP Internal Medicine; Visit Provider Internal Medicine
DX: N20.0 Calculus of kidney (principal); K76.0 Fatty (change of) liver, not elsewhere classified; N32.89 Other specified disorders of bladder; Z90.49 Acquired absence of other specified parts of digestive tract
CPT/HCPCS: 74176

== ENCOUNTER 2024-12-20 10:40 | Outpatient (CLI) | payer BC, SELFPAY ==
--- OUTSIDE RECORDS SUMMARY | 2024-12-20 10:44 | XMS_ITS | Clinical Summary ---
Author Organization [facility] Address [address] [place] [address] Care Team Providers Care Reinforcement Maker Name Role Phone Obdulio Wilder MD Primary Care Provider Allergies No known active allergies Medications metFORMIN [...] (11/27/2021): Added automatically from request for surgery [id number] Immunizations Immunization Administration Dates Next Due Influenza, [...] drink first t mayda in the morning (EYE-INSECTICIDE MIXER) to steady your nerves or to get [...] Tdap) 01/26/2017 01/26/2007 UKY-Depression Screening 01/01/2023 01/01/2022 [id number] Vaccine (1 - 2023- season) 2024 UKY-Influenza [...] this topic Medical Devices Implanted Type Area Knot Cutter Device Identifier Shelf Expiration Date Model / Serial / Lot Mesh Phasix St [id number] - [id number] Implanted:Qty : 1 on 12/05/2021 by Tomy Christine MD at [facility] N/A: Abdomen [employer] [id number] 03/02/2023 [id number] / / [id number] Description:SUB cat# [id number] Peg Ponsky 20fr Pull - [id number] Implanted:Qty : 1 on 12/05/2021 by Tomy Christine MD at [facility] N/A: Abdomen Micro[employer] [id number] / / NOT PROVIDED Procedures Procedure Name [...] ORDERABLES Final Resul t Performing Organization Address City/[facility] Co de Phone Number HEALTHCARE LAB [address] [place] [address] * Hepatitis C Antibody - ED (01/13/2022 8:58 AM EDT) Hepatitis C Antibody Negative Negative 01/13/2022 11:54 AM EDT HEALTHCARE LAB Blood Venous blood specimen / Unknown Venipuncture / Unknown 01/13/2022 8:58 AM EDT 01/13/2022 9:06 AM EDT us Nathan Rivera MD LAB BLOOD ORDERABLES Final Resul t Performing Organization Address City/[facility] Co de Phone Number HEALTHCARE LAB [address] [place] [address] from Last 3 Months or Most Recently [...] Patient has decision-making capacity? Yes Care Teams Reinforcement Maker Relationship Specialty Start Date End Date Obdulio Wilder MD [address] [place] [address] PCP - General 11/16/20
== END 2024-12-20 23:59 | disposition home or self-care (01) ==
LOC: RT 10:41
PROVIDERS: PCP Internal Medicine; Visit Provider Physician Assistant
DX: I49.1 Atrial premature depolarization (principal); I49.3 Ventricular premature depolarization
CPT/HCPCS: 93225; 93227

== ENCOUNTER 2024-12-28 06:53 | Outpatient (CLI) | payer BC, SELFPAY ==
--- NOTE | 2024-12-28 | CA_ITS ---
APPROVED REPORT Exam: Pharmacologic Technologist: Nalini Donato Ht: 5 ft 11 in Wt: 237 lbs BSA: 2.27 m2 HR: 57 bpm BP: 120/75 mmHg Stress Test Details Test: Lexiscan HR Resting HR: 57 bpm Max Heart Rate (APMHR): 156.863975 bpm Max HR Achieved: 82 bpm Target HR (85% APMHR): 132.782657 bpm % of APMHR: 52.56 Recovery HR: 77 bpm BP Resting BP: 120.0/75.0 mmHg Max BP: 122.0/69.0 mmHg Recovery BP: 112.0/70.0 mmHg ECG Resting ECG: Sinus rhythm, no ischemia or ectopy. Stress ECG Conclusion After 5:30 stopped due to patient request for shortness of air and was unsteady on treadmill. Changed to Lexiscan. Symptoms: None Arrhythmias/Ectopy: Lexiscan ST-T Changes: - Electronically signed by : Jinny Sanders MD 12/28/2024 22:50:20
--- OUTSIDE RECORDS SUMMARY | 2024-12-28 06:56 | XMS_ITS | Clinical Summary ---
Author Organization [facility] Address [address] [place] [address] Care Team Providers Care Track Repair Person Name Role Phone Obdulio Wilder MD Primary Care Provider [phone] Allergies No known active allergies Medications metFORMIN [...] (11/27/2021): Added automatically from request for surgery [id number] Immunizations Immunization Administration Dates Next Due Influenza, [...] drink first t mayda in the morning (EYE-FREE LANCE MODEL) to steady your nerves or to get [...] Tdap) 01/26/2017 01/26/2007 [facility]Y-Depression Screening 01/01/2023 01/01/2022 [id number] Vaccine (1 - 2023- season) 2024 UKY-Influenza [...] this topic Medical Devices Implanted Type Area Aix System Administrator Device Identifier Shelf Expiration Date Model / Serial / Lot Mesh Phasix St [id number] - [id number] Implanted:Qty : 1 on 12/05/2021 by Tomy Christine MD at [facility] N/A: Abdomen [id number] 03/02/2023 [id number] / / [id number] Description:SUB cat# [id number] Peg Ponsky 20fr Pull - [id number] Implanted:Qty : 1 on 12/05/2021 by Tomy Christine MD at [facility] N/A: Abdomen [employer] [id number] / / NOT PROVIDED Procedures Procedure Name [...] ORDERABLES Final Resul t Performing Organization Address City/[facility] Co de Phone Number HEALTHCARE LAB [address] [place] [address] * Hepatitis C Antibody - ED (01/13/2022 8:58 AM EDT) Hepatitis C Antibody Negative Negative 01/13/2022 11:54 AM EDT HEALTHCARE LAB Blood Venous blood specimen / Unknown Venipuncture / Unknown 01/13/2022 8:58 AM EDT 01/13/2022 9:06 AM EDT us Nathan Rivera MD LAB BLOOD ORDERABLES Final Resul t Performing Organization Address City/[facility] Co de Phone Number HEALTHCARE LAB [address] [place] [address] from Last 3 Months or Most Recently [...] Patient has decision-making capacity? Yes Care Teams Track Repair Person Relationship Specialty Start Date End Date Obdulio Wilder MD [address] [place] [address] PCP - General 11/16/20
--- NOTE | 2024-12-28 07:00 | NM_ITS ---
APPROVED REPORT Exam: Nuclear Stress Test Indication: SOB, Abnormal EKG, HTN, DM, Family history Patient Location: Outpatient Stress Tech: Nalini Donato DC Tech:Rika Clark, ARRT, RT (R)(N) Ht: 5 ft 11 in Wt: 238 lbs HR: 67 bpm BP: 173/72 mmHg BSA: 2.27 m2 TID: 0.97 BMI: 33.1 History: SOB, Abnormal EKG, HTN, DM, Family history Procedure: Patient received 0.4 mg of intravenous Lexiscan, resting heart rate 67 bpm, resting blood pressure 173/72 mmHg, with Lexiscan maximum heart rate achieved was 86 bpm which is % of the maximum predicted heart rate and blood pressure was 124/69 mmHg. With Lexiscan, patient denied any complaint of chest pain. Cardiac Stress and Resting SPECT Images: Cardiac Stress and Resting SPECT images were obtained using technetium 99m Myoview 31.0 mCi stress and 10.00 mCi at rest. Resting and stress imaging in supine and prone positions demonstrate a small sized, moderate, predominantly fixed perfusion defect in the basal inferior LV wall. There is a small region of surrounding reversibility present. Gated imaging demonstrates normal global LV systolic function. There is mild hypokinesis of the basal inferior LV wall. LVEF is calculated at 53%. Conclusion: Small sized, moderate, predominantly fixed perfusion defect in the basal inferior LV wall. There is a small region of surrounding reversibility present. Findings are suggestive of partial reversible ischemia. Gated imaging demonstrates normal global LV systolic function. There is mild hypokinesis of the basal inferior LV wall. LVEF is calculated at 53%. Electronically signed by : Jinny Sanders MD 12/28/2024 22:41:03
[2024-12-28] MEDS: SODIUM CHLORIDE 0.9% 10ML SYR (RAD ONLY) 10 ML IV ×2 (08:57)
[2024-12-28] MEDS: ISOTOPE MYOVIEW (PER STUDY) 1 DOSE IV (08:58)
[2024-12-28] MEDS: REGADENOSON 0.4MG/5ML SYRINGE 0.4 MG IV (09:15)
== END 2024-12-28 23:59 | disposition home or self-care (01) ==
LOC: RAD 06:54
PROVIDERS: PCP Internal Medicine; Visit Provider Physician Assistant
DX: R94.39 Abnormal result of other cardiovascular function study (principal); E11.49 Type 2 diabetes mellitus with other diabetic neurological complication; I10 Essential (primary) hypertension; E78.5 Hyperlipidemia, unspecified; I49.3 Ventricular premature depolarization; R94.31 Abnormal electrocardiogram [ECG] [EKG]
CPT/HCPCS: 78452; 93017; 93018; A9502; J2785

== ENCOUNTER 2025-01-18 08:26 | Day surgery (SDC) | payer BC, SELFPAY ==
[2025-01-18] VITALS (12 sets, daily range): BP systolic 98–153; BP diastolic 58–99; PULSE 48–64; RESP 17–20; O2SAT 90–98; BMI 33.3
--- NOTE | 2025-01-18 07:07 | IR_ITS ---
APPROVED REPORT Patient Location: Outpatient PROCEDURES Left heart catheterization Left ventriculogram Selective coronary angiogram INDICATION Abnormal Myoview, Angina pectoris, Informed consent was obtained prior to the procedure. COMPLICATIONS NONE Estimated Blood Loss: LESS THAN 10 ML TECHNIQUE One percent lidocaine used to anesthetize the right anterior aspect of the wrist. The right radial artery was accessed via the Seldinger technique. A 6 Namibian sheath was placed in the right radial artery. 2.5 mg of Verapamil, 800 mcg of nitroglycerin, 1mg Lidocaine and 5000 U Heparin were given through the arterial sheath. The JL3 catheter was also used to perform left heart catheterization, left ventriculogram and selective coronary angiogram. At the end of the procedure the sheath was removed good hemostasis was achieved using Traclet band, patient was transferred to the postop holding area in stable condition. ANGIOGRAPHIC RESULTS The left main artery Normal The left anterior descending artery Mild diffuse 10% luminal regularities The circumflex artery Normal The right coronary artery Dominant normal The ZAPATA ventriculogram reveals Normal The left ventricular end-diastolic pressure 10 mmHg IMPRESSION Mild luminal irregularities in the LAD Normal ejection fraction Normal LVEDP PLAN 1. Medical management Electronically signed by : Chilo Velasco MD 01/18/2025 11:05:52
[2025-01-18 08:53] LABS: Hematocrit 46.5 % (42.0-52.0); Hemoglobin 16.3 g/dL (14.1-18.0); Immature Granulocytes % 0.5 %; Mean Corpuscular HGB Conc 35.1 g/dL (31.8-35.4); Mean Corpuscular Hemoglobin 31.7 pg (27.0-31.2); Mean Corpuscular Volume 90.3 fl (80-94); Nucleated Red Blood Cells % 0 %; Platelet Count 181 K/mm3 (142-424); Red Blood Count 5.15 M/mm3 (4.60-6.20); Red Cell Distribution Width-SD 41.4 fL; White Blood Count 5.8 K/mm3 (4.8-10.8)
[2025-01-18 09:09] LABS: Anion Gap 16.2 mEq/L (5-15); Blood Urea Nitrogen 19 mg/dl (9-20); Calcium 9.5 mg/dl (8.4-10.2); Carbon Dioxide 23 mmol/L (22.0-30.0); Chloride 104 mmol/L (98-107); Creatinine Clearance Estimated 114 mL/min (50-200); Creatinine,Serum 0.80 mg/dl (0.66-1.25); Estimated Glomerular Filt Rate 97 ml/min (>60); GFR (African American) 118 ML/MIN (>60); Glucose 171 mg/dl (74-100); Potassium 4.2 mmoL/L (3.5-5.1); Sodium 139 mmol/L (136-145)
[2025-01-18] MEDS: 0.9 % SODIUM CHLORIDE 500 ML 25 ML IV (10:40)
[2025-01-18] MEDS: LIDOCAINE 1% 10ML MDV 10 ML IJ (10:40)
[2025-01-18] MEDS: VERAPAMIL 2.5MG/ML 2ML VIAL 2.5 MG IV (10:40)
[2025-01-18] MEDS: HEPARIN 1,000 UNITS/ML 10ML VIAL (CATH LAB) 5000 UNIT IV (10:40)
[2025-01-18] MEDS: HEPARIN 1,000 UNITS/500ML NS (CATH LAB) 3000 UNIT IV (10:40)
[2025-01-18] MEDS: NITROGLYCERIN 800MCG/8ML SYR (CATH LAB) 800 MCG IA (10:41)
[2025-01-18] MEDS: MIDAZOLAM HCL 1MG/ML 5ML VIAL 1 MG IV (10:59)
[2025-01-18] MEDS: FENTANYL 100MCG/2ML VIAL 50 MCG IV (10:59)
[2025-01-18] MEDS: IOPAMIDOL-370 (76%);100ML BOTTLE 60 ML IV (14:04)
== END 2025-01-18 14:00 | disposition home or self-care (01) ==
PROVIDERS: PCP Internal Medicine; Visit Provider Internal Medicine
PROC: 4A023N7 Measurement of Cardiac Sampling and Pressure, Left Heart, Percutaneous Approach (ICD-10-PCS; CPT 93452; principal; 2025-01-18 08:30)
DX: I20.89 Other forms of angina pectoris (principal); I49.3 Ventricular premature depolarization; I49.1 Atrial premature depolarization; R94.39 Abnormal result of other cardiovascular function study; R42 Dizziness and giddiness; R53.83 Other fatigue; R06.02 Shortness of breath; I10 Essential (primary) hypertension; E11.42 Type 2 diabetes mellitus with diabetic polyneuropathy; M15.9 Polyosteoarthritis, unspecified; E78.2 Mixed hyperlipidemia; E66.01 Morbid (severe) obesity due to excess calories; Z79.84 Long term (current) use of oral hypoglycemic drugs; Z79.4 Long term (current) use of insulin; Z79.899 Other long term (current) drug therapy; Z68.33 Body mass index [BMI] 33.0-33.9, adult; Z82.49 Family history of ischemic heart disease and other diseases of the circulatory system
CPT/HCPCS: 93452; 80048; 85025; 99152; C1725; C1760; C1769; J1200; J1644; J3010; J7040; Q9967

== ENCOUNTER 2025-02-08 08:30 | Outpatient (CLI) | payer BC, SELFPAY ==
--- OUTSIDE RECORDS SUMMARY | 2025-02-08 08:32 | XMS_ITS | Clinical Summary ---
Author Organization [facility] Address [address] [place] [address] Care Team Providers Care Neurodiagnostic Technologist Name Role Phone Obdulio Wilder MD Primary Care Provider [phone] Allergies No known active allergies Medications metFORMIN [...] (11/27/2021): Added automatically from request for surgery [id number] Immunizations Immunization Administration Dates Next Due Influenza, [...] drink first t mayda in the morning (EYE-WAITER/WAITRESS TOURIST CLASS) to steady your nerves or to get [...] Health Maintenance Due Date Last Done Comments UKY-Depression Screening 1960 [facility]Y-/Child/Adol SDOH Screenings 1960 UKY- SDOH Screenings 1978 UKY-Adult SDOH Screenings 1978 CT Colonography 2005 Colonoscopy 2005 FIT-DNA 2005 FIT 2005 FOBT 2005 Sigmoidoscopy 2005 UKY-Colorectal Cancer Screening 2005 UKY-Pneumococcal Vaccine: 50 + Years (1 of 1 - PCV) 2010 UKY-DTaP,Tdap,and Td Vaccine s (2 - Td or Tdap) 01/26/2017 01/26/2007 [id number] Vaccine (1 - 2023- season) 2024 [facility]Y-Influenza Vaccine (#1) 03/06/202506/06, 04/13/2010 UKY-RSV Vaccine: 60+ Years o r (1 - 1-dose 75+ series) 2035 UKY-Zoster Vaccines Completed 09/01/2020, 06/06/2020 HPV Vaccines Aged Out No longer eligi [...] this topic Medical Devices Implanted Type Area Watch Caser Device Identifier Shelf Expiration Date Model / Serial / Lot Mesh Phasix St [id number] - [id number] Implanted:Qty : 1 on 12/05/2021 by Tomy Christine MD at [facility] N/A: Abdomen [employer] Inc-[id number] 03/02/2023 [id number] / / [id number] Description:SUB cat# [id number] Peg Ponsky 20fr Pull - [id number] Implanted:Qty : 1 on 12/05/2021 by Tomy Christine MD at [facility] N/A: Abdomen Micro[employer] Inc-[id number] / / NOT PROVIDED Insurance ANTHEM Advance Directives * Full Code (Latest Code Status on File) Date Activated Date Inactivated Comments 01/13/2022 1:26 PM 01/14/2022 6:06 PM Question Answer Comments Patient has decision-making capacity? Yes * Full Code Date Activated Date Inactivated Comments 12/05/2021 11:14 AM 12/06/2021 2:57 PM Question Answer Comments Patient has decision-making capacity? Yes Care Teams Neurodiagnostic Technologist Relationship Specialty Start Date End Date Obdulio Wilder MD [address] [facility] [address] [place] [address] PCP - General 11/16/20
--- NOTE | 2025-02-08 08:45 | CA_ITS ---
APPROVED REPORT EXAM: Comprehensive 2D, Doppler, and color-flow Echocardiogram Assistant To The Dean: Amirah Harris RVT Ht: 5 ft 11 in Wt: 237lbs BSA: 2.27 BP: 120/86 mmHg Indications: SHORTNESS OF BREATH,ABNORMAL EKG 2D Dimensions LA Volume 42.70 mL LA Volume Index 18.81 mL/m2 (M/F) 16-34 M-Mode Dimensions RVDd 2.47 cm (0.9-2.6) LA Diam 4.52 cm (1.9-4.0) LVDd 5.09 cm (3.5-5.7) LVDs 3.15 cm (3.5-5.7) IVSd 1.22 cm (0.6-1.1) PWd 0.61 cm (0.6-1.1) EF (Teich) 68.00% FS 38.10% EDV (Teich) 123.20 mL TAPSE 2.68 (<1.7) ESV (Teich) 39.40 mL LV Diastology E Decel Time 207 (160-240 msec) E/A Ratio 1.0 Aortic Valve NAYA Index 1.37 cm2/m2 AoV Peak Giorgio. 101.0 (50-130 cm/s) AO Peak GR. 4.10 mmHg AO Mean GR. 2.10 (<5 mmHg) AO VTI 24.0 (18-25 cm) NAYA (VTI) 3.17 (2.5-4.5 cm2) Mitral Valve MV E Max Giorgio. 79.0 (40-130 cm/s) MV A Velocity 76.0 (40-130 cm/s) E/A Ratio 1.04 MV PHT 61.0 ms Pulmonary Valve PV Peak Velocity 75.0 (50-150 cm/s) Left Ventricle The left ventricle is normal size. Left ventricular systolic function is normal. The left ventricular ejection fraction is within the normal range. There is increased left ventricular wall thickness. There is normal LV segmental wall motion. The left ventricular diastolic function is normal. LVEF is 55% Right Ventricle The right ventricle is moderately dilated. The right ventricular systolic function is mildly reduced. Atria The left atrium is mildly dilated. The right atrium is mildly dilated. There is no color Doppler evidence of interatrial shunt. Aortic Valve The aortic valve is mildly thickened. There is no hemodynamically significant aortic valvular stenosis. No aortic regurgitation is present. Mitral Valve The mitral valve is normal in structure. No evidence of mitral valve stenosis. Mild mitral regurgitation is present. Tricuspid Valve The tricuspid valve leaflets are thin and pliable. Mild tricuspid regurgitation. RVSP is 20-25 mmHg. Pulmonic Valve The pulmonary valve is grossly normal in structure. Trace pulmonic valve regurgitation is present. Great Vessels The aortic root is normal in size. The ascending aorta is mildly dilated, measuring 4.0 in diameter. IVC is normal in size and collapses >50% with inspiration. Pericardium There is no pericardial effusion. Other Information Study Quality: Fair Conclusion Normal LV systolic function. Moderate RV dilation with mild reduction in RV function. Mld biatrial dilation. Mild MR, mild TR. The ascending aorta is mildly dilated, measuring 4.0 in diameter.Correlation with new or recent CTA chest is suggested. Electronically signed by : Jinny Sanders MD 02/08/2025 12:59:47
== END 2025-02-08 23:59 | disposition home or self-care (01) ==
LOC: RT 08:30
PROVIDERS: PCP Internal Medicine; Visit Provider Physician Assistant
DX: I08.1 Rheumatic disorders of both mitral and tricuspid valves (principal); I77.810 Thoracic aortic ectasia; I11.9 Hypertensive heart disease without heart failure; I49.3 Ventricular premature depolarization; I20.89 Other forms of angina pectoris; R94.31 Abnormal electrocardiogram [ECG] [EKG]
CPT/HCPCS: 93306

== ENCOUNTER 2025-02-09 07:09 | Outpatient (CLI) | payer BC, SELFPAY ==
--- OUTSIDE RECORDS SUMMARY | 2025-02-09 07:13 | XMS_ITS | Clinical Summary ---
Author Organization [facility] Address [address] [place] [address] Care Team Providers Care Crm Administrator Name Role Phone Obdulio Wilder MD Primary Care Provider [phone] Allergies No known active allergies Medications metFORMIN [...] (11/27/2021): Added automatically from request for surgery [id number] Immunizations Immunization Administration Dates Next Due Influenza, [...] drink first t mayda in the morning (EYE-ADULT BASIC STUDIES TEACHER) to steady your nerves or to get [...] (2 - Td or Tdap) 01/26/2017 01/26/2007 [id number] Vaccine (1 - 2023- season) 2024 [facility]Y-Influenza [...] this topic Medical Devices Implanted Type Area Loss Prevention/Safety District Manager Device Identifier Shelf Expiration Date Model / Serial / Lot Mesh Phasix St [id number] - [id number] Implanted:Qty : 1 on 12/05/2021 by Tomy Christine MD at [facility] N/A: Abdomen [employer]ol [id number] 03/02/2023 [id number] / / [id number] Description:SUB cat# [id number] Peg Ponsky 20fr Pull - [id number] Implanted:Qty : 1 on 12/05/2021 by Tomy Christine MD at [facility] N/A: Abdomen Microvasive Inc-[id number] / / NOT PROVIDED Insurance ANTHEM Advance Directives * Full Code (Latest Code Status on File) Date Activated Date Inactivated Comments 01/13/2022 1:26 PM 01/14/2022 6:06 PM Question Answer Comments Patient has decision-making capacity? Yes * Full Code Date Activated Date Inactivated Comments 12/05/2021 11:14 AM 12/06/2021 2:57 PM Question Answer Comments Patient has decision-making capacity? Yes Care Teams Crm Administrator Relationship Specialty Start Date End Date Obdulio Wilder MD [address] [facility] [address] [place] [address] PCP - General 11/16/20
--- NOTE | 2025-02-09 07:30 | CT_ITS ---
FINAL REPORT TECHNIQUE: Axial images were obtained through the chest without contrast. Reconstructed images were obtained and reviewed. This study was performed with techniques to keep radiation doses as low as reasonably achievable, (ALARA). Individualized dose reduction techniques using automated exposure control or adjustment of mA and/or kV according to the patient's size were employed. CLINICAL HISTORY: dyspnea FINDINGS: The ascending aorta is enlarged measuring 4.3 cm. There are calcified granulomas in the lingula, left lower lobe, and right upper lobe. The heart size is normal. There is no pericardial or pleural effusion. No suspicious infiltrate or nodule identified. IMPRESSION: Ascending aortic aneurysm. Evidence of granulomatous disease. Reviewed, Interpreted and Dictated by Mamadou Merida MD Transcribed by Maddy Weinberg Authenticated and [facility]
--- NOTE | 2025-02-09 07:30 | CT_ITS ---
FINAL REPORT TECHNIQUE: Axial CT images were performed from the lung bases through the iliac crests. Coronal and sagittal reformats were submitted.This study was performed with techniques to keep radiation doses as low as reasonably achievable (ALARA). Individualized dose reduction techniques using automated exposure control or adjustment of mA and/or kV according to the patient''''s size were employed. CLINICAL HISTORY: dyspnea COMPARISON: 12/16/2024 FINDINGS: There is mild fatty infiltration of the liver. There are calcified granulomas in the liver and spleen. The gallbladder is surgically absent. The adrenals are unremarkable. There is a small nonobstructing stone in the lower pole of the right kidney measuring 4 mm. There is no evidence of hydronephrosis. There is no mass or adenopathy. IMPRESSION: Nonobstructing right renal stone, stable from prior. Reviewed, Interpreted and Dictated by Mamadou Merida MD Transcribed by Maddy Weinberg Authenticated and . [facility]
== END 2025-02-09 23:59 | disposition home or self-care (01) ==
LOC: RAD 07:12
PROVIDERS: PCP Internal Medicine; Visit Provider Physician Assistant
DX: I71.21 Aneurysm of the ascending aorta, without rupture (principal); N20.0 Calculus of kidney; R93.89 Abnormal findings on diagnostic imaging of other specified body structures; I49.3 Ventricular premature depolarization; I10 Essential (primary) hypertension; I20.89 Other forms of angina pectoris
CPT/HCPCS: 71250; 74150

== ENCOUNTER 2025-06-08 12:36 | Outpatient (CLI) | payer BC, SELFPAY ==
[2025-06-08 14:04] LABS: Hemoglobin A1C 7.3 % (4.0-6.0)
[2025-06-08 14:18] LABS: Alanine Aminotransferase 25 U/L (12-78); Albumin Level 4.4 g/dl (3.5-5.0); Albumin/Globulin Ratio 1.4 (1.1-1.8); Alkaline Phosphatase 75 U/L (38-126); Anion Gap 15.4 mEq/L (5-15); Aspartate Amino Transferase 32 U/L (17-59); Bilirubin,Total 1.1 mg/dl (0.2-1.3); Blood Urea Nitrogen 22 mg/dl (9-20); Calcium 9.6 mg/dl (8.4-10.2); Carbon Dioxide 21 mmol/L (22.0-30.0); Chloride 105 mmol/L (98-107); Cholesterol 162 mg/dl (140-200); Creatinine,Serum 0.70 mg/dl (0.66-1.25); Estimated Glomerular Filt Rate 114 ml/min (>60); GFR (African American) 137 ML/MIN (>60); Globulin 3.1 g/dL (1.3-3.2); Glucose 121 mg/dl (74-100); HDL Cholesterol 51 mg/dl (40-60); Potassium 4.4 mmoL/L (3.5-5.1); Sodium 137 mmol/L (136-145); Total Protein,Serum 7.5 g/dl (6.3-8.2); Triglycerides 92 mg/dl (30-150)
--- OUTSIDE RECORDS SUMMARY | 2025-06-11 12:38 | XMS_ITS | Clinical Summary ---
Author Organization [facility] Address [address] 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 Paraesophageal hernia 11/27/2021 Overview (11/27/2021): Added automatically from request for surgery [id number] Resolved Problems Problem Noted Date Diagnosed Date Resolved Date Post-operative nausea and vomiting 01/13/2022 03/26/2025 Immunizations Immunization Administration Dates Next Due Influenza, [...] drink first t mayda in the morning (EYE-AUTOMATIC BEAM WARPER TENDER) to steady your nerves or to get [...] (2 - Td or Tdap) 01/26/2017 01/26/2007 [id number] Vaccine (1 - 2024- season) 2025 [facility]Y-Influenza Vaccine (#1) 03/06/202506/06, 04/13/2010 UKY-RSV Vaccine: [...] this topic Medical Devices Implanted Type Area Obstetrical Tech Device Identifier Shelf Expiration Date Model / Serial / Lot Mesh Phasix St [id number] - [id number] Implanted:Qty : 1 on 12/05/2021 by Tomy Christine MD at [facility] N/A: Abdomen [employer] [id number] 03/02/2023 [id number] / / [id number] Description:SUB cat# [id number] Peg Ponsky 20fr Pull - [id number] Implanted:Qty : 1 on 12/05/2021 by Tomy Christine MD at [facility] N/A: Abdomen Microvasive Inc-[id number] / / NOT PROVIDED Insurance ANTH Advance Directives * Full Code (Latest Code Status on File) Date Activated Date Inactivated Comments 01/13/2022 1:26 PM 01/14/2022 6:06 PM Question Answer Comments Patient has decision-making capacity? Yes * Full Code Date Activated Date Inactivated Comments 12/05/2021 11:14 AM 12/06/2021 2:57 PM Question Answer Comments Patient has decision-making capacity? Yes Care Teams Legal Financial Specialist Relationship Specialty Start Date End Date Obdulio Wilder MD [address] [facility] [address] [place] [address] PCP - General 11/16/20
== END 2025-06-08 23:59 | disposition home or self-care (01) ==
LOC: LAB.DROPOF 06-11 12:37
PROVIDERS: PCP Internal Medicine; Visit Provider Internal Medicine
DX: E11.59 Type 2 diabetes mellitus with other circulatory complications (principal); E11.49 Type 2 diabetes mellitus with other diabetic neurological complication; I10 Essential (primary) hypertension; E78.2 Mixed hyperlipidemia
CPT/HCPCS: 80053; 80061; 82043; 82570; 83036

== ENCOUNTER 2025-06-19 09:31 | Outpatient (CLI) | payer BC, SELFPAY ==
[2025-06-19 10:40] VITALS: PULSE 84; PULSE 87
[2025-06-19] MEDS: ALBUTEROL 0.083% 2.5 MG/3 ML NEB IH (10:40)
== END 2025-06-19 23:59 | disposition home or self-care (01) ==
LOC: RT 09:31
PROVIDERS: PCP Internal Medicine; Visit Provider Internal Medicine Pulmonary Disease
DX: R94.2 Abnormal results of pulmonary function studies (principal); R06.02 Shortness of breath; R06.09 Other forms of dyspnea
CPT/HCPCS: 94060; 94618; 94640; 94726; 94729